=== PATIENT | male | born 1950 | race African-American/Black ===

== ENCOUNTER → 2017-09-19 | Outpatient (CLI) | payer OTHER ==
[~2017-09-19] MED LIST: ASPIR 8181 MG PO; CYCLOBENZAPRINE5 MG PO; FISH OIL 1,001000 M2 PO; HYDROCODONE-APA1 TA1 PO; LIPITOR10 MG PO; LISINOPRIL-HCT1 EACH PO; LISINOPRIL10 MG PO; NEURONTIN800 MG PO; NITROGLYCERIN0.4 MG; PROBIOTIC1 EAC2 PO; PROSCAR 5MG TABL5 MG PO; TOPROL XL25 MG PO; TOPROL XL50 MG PO; UNICOMPLEX M TA1 TA1 PO; ZANTAC 150MG T150 MG PO
== END ==
LOC: RAD 12:11
DX: M25.521 Pain in right elbow (principal)

== ENCOUNTER → 2018-03-06 | Outpatient (CLI) | payer OTHER | LOC: RAD 11:17 | DX: R05 Cough (principal); R06.02 Shortness of breath; I25.10 Atherosclerotic heart disease of native coronary artery without angina pectoris ==

== ENCOUNTER → 2018-03-24 | Outpatient (CLI) | payer OTHER | LOC: MRI 06:17 | DX: R41.82 Altered mental status, unspecified (principal) ==

== ENCOUNTER 2018-05-27 16:45 | Emergency (ER) | payer OTHER ==
[~2018-05-27] VITALS: Ht 175.3 cm; Wt 82.6 kg
--- NOTE | ~2018-05-27 | EKG ---
[place] [address] [facility] [place] [address] ELECTROCARDIOGRAM REPORT Name: ZOILA BLAIR [facility] Room #: DEP [id number] Admission: 05/27/18 Attend Phys: Discharge: 05/27/18 Date of : 48 Report #: [id number] THIS REPORT FOR: //name// [facility] ED Test Date: 2018-05-27 Test Time: 17:11:26 Pat Name: ZOILA BLAIR Department: Room: Gender: M Family Practitioner: ИВАН : 1950 Requested By: Toño Mensah Order Number: [id number] MD: Casey Richards Measurements Intervals [place] Rate: 63 P: 24 DE: 145 QRS: 68 QRSD: 102 T: -53 QT: 392 QTc: 402 Interpretive Statements Sinus rhythm Anterior infarct, old Nonspecific T abnormalities, inferior leads Compared to ECG 01/24/2017 14:47:05 First degree AV block no longer present Electronically Signed On 05-29-2018 7:29:54 CDT by Casey Richards [email or web address] <ELECTRONICALLY SIGNED> By: Casey Richards MD, [facility] 05/29/18 0729 10 10 Casey Richards MD, [facility] /EPI
[2018-05-27 17:03] LABS: ABSOLUTE NEUTROPHILS 3.5 thou/uL (1.4-8.2); BASOPHILS 0.5 % (0.0-2.0); EOSINOPHILS 1.2 % (0.0-3.0); HEMATOCRIT 37.7 % (42.0-52.0); HEMOGLOBIN 12.7 gm/dL (14.0-18.0); LYMPHOCYTES 39.1 % (24.0-44.0); MCH 30.5 pg (26.0-34.0); MCHC 33.7 g/dL (28.0-37.0); MCV 90.8 fL (80.0-100.0); MONOCYTES 7.4 % (1.0-8.0); PLATELET COUNT 175 thou/uL (150-400); POLYS 51.8 % (36.0-66.0); RBC 4.16 mil/uL (4.50-6.00); RDW 14.2 % (10.5-14.5); WBC 6.8 thou/uL (4.0-11.0)
[2018-05-27 17:15] LABS: PROTIME 10.6 Seconds (9.3-11.4)
[2018-05-27 17:23] LABS: ANION GAP 12 mmol/L (7-16); BUN 37 mg/dL (7-18); CALCIUM 9.7 mg/dL (8.5-10.1); CHLORIDE 104 mmol/L (98-107); CO2 26 mmol/L (21-32); GLUCOSE 124 mg/dL (74-106); POTASSIUM 4.3 mmol/L (3.5-5.1); SODIUM 142 mmol/L (136-145)
[2018-05-27 17:28] LABS: SGOT 16 U/L (15-37); SGPT 23 U/L (30-65); TOTAL BILIRUBIN 0.5 mg/dL (<0.1-1.0); TOTAL PROTEIN 7.8 g/dL (6.4-8.2); TROPONIN-I <0.06 ng/mL (<0.06)
== END 2018-05-27 19:50 | disposition short-term general hospital (02) ==
LOC: ER 16:45
PROVIDERS: Physician Assistant
DX: S09.90XA Unspecified injury of head, initial encounter (principal); R55 Syncope and collapse; M54.2 Cervicalgia; T14.8XXA Other injury of unspecified body region, initial encounter; K21.9 Gastro-esophageal reflux disease without esophagitis; I25.2 Old myocardial infarction; W19.XXXA Unspecified fall, initial encounter; Y93.89 Activity, other specified; Y92.89 Other specified places as the place of occurrence of the external cause; Y99.8 Other external cause status

== ENCOUNTER 2018-10-06 06:42 | Outpatient (CLI) | payer OTHER ==
[~2018-10-06] VITALS: Ht 175.3 cm; Wt 74.8 kg
--- NOTE | ~2018-10-06 | EKG ---
[address] [address] ELECTROCARDIOGRAM REPORT Name: ZOILA BLAIR III Room #: 209-P [facility].#: [id number] Admission: 10/06/18 Attend Phys: Alonzo Alexander MD Discharge: Date of : 48 Report #: [id number] THIS REPORT FOR: //name// [facility] Test Date: 2018-10-06 Test Time: 13:09:29 Pat Name: ZOILA BLAIR Department: Room: Gender: Hospice Plan Administrator: Feliz OSOIRO : 1950 Requested By: Alonzo Alexander Order Number: [id number] MD: Pacheco Potter Measurements Intervals [place] Rate: 59 P: 62 WI: 218 QRS: 54 QRSD: 97 T: -13 QT: 444 QTc: 440 Interpretive Statements Sinus rhythm Borderline T abnormalities, inferior leads Compared to ECG 10/06/2018 07:12:02 No significant changes Electronically Signed On 10-06-2018 16:41:27 HOT WORT SETTLER by Pacheco Potter [email or web address] <ELECTRONICALLY SIGNED> By: Pacheco Potter MD 10/06/18 1641 1309 130 Pacheco Potter MD /JOSEPH
--- NOTE | ~2018-10-06 | EKG ---
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 : 1950 Requested By: Alonzo Alexander Order Number: [id number] MD: Casey Richards Measurements Intervals [place] Rate: 75 P: -44 [place]: 157 QRS: 65 QRSD: 88 T: -51 QT: 306 QTc: 342 Interpretive Statements Sinus rhythm Nonspecific ST and T wave abnormality Baseline wander in lead(s) II,aVR,aVF,V3 Compared to ECG 10/06/2018 13:09:29 Nonspecific change in the ST and T-wave segments Electronically Signed On 10-07-2018 7:49:13 STRUCTURAL BIOLOGIST by Casey Richards [email or web address] <ELECTRONICALLY SIGNED> By: Casey Richards MD, [facility] 10/07/18 0749 Casey Richards MD, [facility] /EPI
--- NOTE | ~2018-10-06 | CATHLAB ---
[facility] [place] [address] INVASIVE PROCEDURE REPORT Name: ZOILA BLAIR III Room #: 209-P [facility]#: [id number] Admission: 10/06/18 Attend Phys: Alonzo Alexander MD Discharge: Date of : 48 Date of Service: 10/06/18 1627 Report #: [id number] THIS REPORT FOR: //name// APPROVED REPORT Study performed: 10/06/2018 07:10:28 Patient Details Patient Status: Out-Patient Room #: The patient is a 68 year-old male Event Personnel Alonzo Alexander Software Engineer Web Services, Garry Bal RN RN, Tanisha Alfred Sandifer, David Monitor Procedures Performed Left Heart Cath w/or w/o Coronaries [id number] [facility] [address] Place w/wo Plasty Single RCA [id number] Indication Dyspnea, Positive stress test, Chest pain Risk Factors Hypercholesterolemia, Coronary Artery DiseaseHypertension Previous Procedures/Diagnoses Previous PCI, Previous [place] Procedure Narrative The Right Groin^ was infiltrated with 1% Lidocaine subcutaneous anesthesia. A Alonso 7 Embee Mobilerad Syringe #[id number] sheath was inserted into the RFA^. Coronary angiography was performed using coronary diagnostic catheters. The right coronary system was accessed and visualized with a JR4 catheter. The left coronary system was accessed and visualized with a JL4 catheter. The left ventricle was accessed and visualized with a PIGTAIL catheter. Left ventricular/Aortic Valve gradient assessed via catheter pullback. Closure device was deployed with a 6 Fr MYNXGRIP 6/7F #[id number]. The patient tolerated the procedure well and there were no complications associated with the procedure. There was no hematoma. Intraoperative Conscious Sedation Sedation start time: 8.44 Case end Time: 10.31 Versed 2 mg [facility] [address] [place] [address] INVASIVE PROCEDURE [facility]PORT [facility] Room #: 209-P [facility]#: [id number] Admission: 10/06/18 Attend Phys: Alonzo Alexander MD Discharge: Date of : 48 Date of Service: 10/06/18 1627 Report #: [id number] Fluoro Time: 27.51 minutes Dose: DAP 81253 cGycm2 2772 mGy Contrast Type and Amount: Visipaque 200 ml Coronary Angiography The patient's coronary anatomy is right dominant. Diagnostic Cath Left Main Patent vessel, with no flow-limiting lesions. LAD Moderate size caliber vessel, traveling down the anterior wall and wrapping around the apex. There is mild disease in the proximal segment, 20%. Diagonal 1 Patent vessel, with no flow-limiting lesions. Circumflex Patent vessel, with mild disease proximally. OM1 Patent vessel, with mild disease proximally. Travels down the lateral wall, supplying several small branches. Right Coronary Dominant vessel with a stent in the proximal segment, severely restenotic. There is a total occlusion in the mid/distal segment of the RCA, before the bifurcation. The PDA is partially filled via collateral circulation from the LAD. Left Ventriculography Left Ventriculography was not performed. An LVEDP was checked and there is no gradient across the outflow tract. Hemodynamics The aortic pressure is 133/55 mmHg with a mean of 54 mmHg. The left ventricular pressure is 140/12 mmHg with a mean of mmHg. The left ventricular end diastolic pressure is 18 mmHg. There was no gradient across the aortic valve upon pullback. Pullback from the left ventricle to the aorta revealed no gradient across the aortic valve. PCI Technique Lesion Anticoagulation was achieved with Angiomax. Percutaneous coronary intervention was performed on the mid/distal right coronary artery. The lesion stenosis prior to intervention was 100% with ISAURA 1 flow. A VISTA 6FR JR 4 #[id number] Guide Catheter was used to engage the ostium. A Whisper Wire .014 x 190 #[id number] Interventional Guidewire was used to cross the lesion. BALLOON DILATION A Balloon catheter Sprinter OTW 2.0 x 12 #[id number] was inserted and inflated up to 10.00atm for 25seconds. Additional Inflation: 8.00atm [facility] [address] [place] [address] INVASIVE PROCEDURE REPORT Name: ZOILA BLAIR [facility] Room #: 209-P [facility]#: [id number] Admission: 10/06/18 Attend Phys: Alonzo Alexander MD Discharge: Date of : 48 Date of Service: 10/06/18 1627 Report #: [id number] for 12seconds. Additional Inflation: 12.00atm for 21seconds. STENT DEPLOYMENT A drug-eluting stent RESOLUTE MARIA E RX 2.25 X 15 #[id number] was inserted and inflated up to 12.00atm for 14seconds. Final angiography reveals 0 % stenosis with ISAURA 3 flow. PCI Technique Lesion 2 Percutaneous Coronary Intervention was performed on the proximal right coronary artery. Percutaneous coronary intervention was performed on the proximal RCA. The lesion stenosis prior to intervention was 90% with ISAURA 3 flow. A VISTA 6FR JR 4 #[id number] Guide Catheter was used to engage the ostium. Balloon Dilation A Balloon catheter Sprinter OTW 2.0 x 12 #[id number] was inserted and inflated up to 12.00atm for 18seconds. 3.0-10 CUTTING BALLOON 9 FOR 60 / 8 FOR 48, was used for the severe restenotic lesion within the proximal segment of the RCA. Stent Deployment A drug-eluting stent RESOLUTE MARIA E RX 3.0 X 26 #[id number] was inserted and inflated up to 16.00atm for 25seconds. Post Stent Deployment Balloon Dilation A Balloon catheter TREK NC RX 3.0 X 12 #[id number] was inserted and inflated up to 22.00atm for 24seconds. Final angiography reveals 5 % stenosis with ISAURA 3 flow. PCI Technique Lesion 3 Percutaneous Coronary Intervention was performed on the right posterior descending artery. The lesion stenosis prior to intervention was 90% with ISAURA 3 flow. Stent Deployment A drug-eluting stent XIENCE ALPINE RX 2.25 X 15 #[id number] was inserted and inflated up to 8.00atm for 15seconds. Additional Inflation: 12.00atm for 10seconds. The stent was initially deployed at 8 praful. The balloon was withdrawn slightly and additionally inflated up to 12atm. Final angiography reveals 0 % stenosis with ISAURA 3 flow. [facility] [address] [place] [address] INVASIVE PROCEDURE REPORT Name: ZOILA BLAIR III Room #: 209-P [facility] Bianka.#: [id number] Admission: 10/06/18 Attend Phys: Alonzo Alexander MD Discharge: Date of : 48 Date of Service: 10/06/18 162 Report #: [id number] Conclusion 1. Successful insertion of a drug-eluting stent into the total occlusion in the mid/distal segment of the RCA. 2. Successful PCI with the use of a cutting balloon and placement of a drug-eluting stent into the severe, restenotic lesion in the proximal RCA. 3. Successful insertion of a drug-eluting stent into the ostium of the right PDA. 4. Mild disease in the LAD and OM1. 5. Recommend dual antiplatelet therapy and aggressive risk factor management. <ELECTRONICALLY SIGNED> By: Alonzo Alexander MD 10/06/181626 26 26 Alonzo Alexander MD /INF
--- NOTE | ~2018-10-06 | EKG ---
[place] [address] [facility] [place] [address] ELECTROCARDIOGRAM REPORT Name: ZOILA BLAIR III [id number] Admission: 10/06/18 Attend Phys: Alonzo Alexander MD Discharge: Date of : 48 Report #: [id number] THIS REPORT FOR: //name// [facility] Test Date: 2018-10-06 Test Time: 07:12:02 Pat Name: ZOILA BLAIR Department: Room: Gender: M Tub Operator: : 1950 Requested By: Alonzo Alexander Order Number: [id number] MD: Casey Richards Measurements Intervals [place] Rate: 69 P: 14 MD: 157 QRS: 49 QRSD: 97 T: -22 QT: 377 QTc: 404 Interpretive Statements Sinus rhythm Borderline T abnormalities Poor septal R-wave progression Compared to ECG 05/27/2018 17:11:26 No significant change was found Electronically Signed On 10-06-2018 8:12:57 SECTION LEADER AND MACHINE SETTER by Casey Richards [email or web address] <ELECTRONICALLY SIGNED> By: Casey Richards MD, [facility] 10/06/18811 1 1 Casey Richards MD, FACC /EPI
--- NOTE | ~2018-10-06 | D ---
[facility] [place] [place] [address] DISCHARGE SUMMARY Name: ZOILA BLAIR III Room #: DEP JOYCE [facility]#: [id number] Admission: 10/06/18 Attend Phys: Alonzo Alexander MD Discharge: 10/07/18 Date of : 48 Report #: [id number] THIS REPORT FOR: //name// CC: THEODOREShakir Harrisa [facility] DATE OF SERVICE: 10/07/2018 FINAL DIAGNOSES: 1. Unstable angina, status post coronary angioplasty. 2. Coronary artery disease with remote history of myocardial infarction. 3. Hypertension. 4. Transient ischemic attack. 5. Hypercholesterolemia. 6. Edema. 7. Gait instability. HOSPITAL COURSE: The patient presented with increasing dyspnea and chest discomfort with exertion. He also felt generalized fatigue. Please see the cardiac catheterization report for full details. The LAD and left circumflex arteries had mild disease. The stent in the RCA was severely restenotic. After the stent, there was a total occlusion in the mid/distal segment of the RCA. The PDA is partially collateralized from the left coronary artery. Angioplasty was performed with placement of 3 drug-eluting stents. He has remained hemodynamically stable overnight. He offers no complaints of angina or dyspnea. FINAL DISPOSITION: Aspirin 81 mg daily, Plavix 75 mg daily, lisinopril, atorvastatin, metoprolol 25 mg, ranitidine. He is given instructions for followup in the office. <ELECTRONICALLY SIGNED> By: Alonzo Alexander MD 10/08/18 0824 0843 1313 Alonzo Alexander MD /tati
[2018-10-06 07:17] VITALS: BP 148/69
[2018-10-06 07:29] LABS: HEMATOCRIT 39.9 % (42.0-52.0); HEMOGLOBIN 13.4 gm/dL (14.0-18.0); MCH 29.2 pg (26.0-34.0); MCHC 33.7 g/dL (28.0-37.0); MCV 86.9 fL (80.0-100.0); RBC 4.59 mil/uL (4.50-6.00); RDW 15.4 % (10.5-14.5); WBC 6.8 thou/uL (4.0-11.0)
[2018-10-06 07:37] LABS: CALCIUM 9.7 mg/dL (8.5-10.1); CREATININE 1.6 mg/dL (0.7-1.3); POTASSIUM 3.7 mmol/L (3.5-5.1)
[2018-10-06] MEDS ORDERED: RANEXA500 MG PO (07:38)
[2018-10-06 12:24] VITALS: BP 148/70
[2018-10-06 20:17] VITALS: BP 150/76
[2018-10-06 23:55] VITALS: BP 133/71
[2018-10-07 04:43] LABS: HEMATOCRIT 36.7 % (42.0-52.0); HEMOGLOBIN 12.5 gm/dL (14.0-18.0); MCH 29.3 pg (26.0-34.0); MCHC 33.9 g/dL (28.0-37.0); MCV 86.4 fL (80.0-100.0); RBC 4.25 mil/uL (4.50-6.00); RDW 15.5 % (10.5-14.5); WBC 6.4 thou/uL (4.0-11.0)
[2018-10-07 04:51] VITALS: BP 132/89
[2018-10-07 04:55] LABS: ALBUMIN 3.1 g/dL (3.4-5.0); CALCIUM 8.9 mg/dL (8.5-10.1); CREATININE 1.3 mg/dL (0.7-1.3); TOTAL BILIRUBIN 0.3 mg/dL (<0.1-1.0); TOTAL PROTEIN 6.6 g/dL (6.4-8.2)
[2018-10-07 04:57] LABS: TROPONIN-I 1.52 ng/mL (<0.06)
[2018-10-07] MEDS ORDERED: CLOPIDOGREL75 MG PO (08:33)
[2018-10-07 10:35] VITALS: BP 132/89
== END 2018-10-07 11:30 | disposition home or self-care (01) ==
LOC: CATH 06:42 → 2N 12:38 → ENTRNSPT 10-07 11:09 → EDTRNSPTSTS 10-07 11:10 → CATH 10-07 11:30
PROVIDERS: Internal Medicine Cardiovascular Disease
DX: I25.10 Atherosclerotic heart disease of native coronary artery without angina pectoris (principal); I10 Essential (primary) hypertension; E78.00 Pure hypercholesterolemia, unspecified; I25.2 Old myocardial infarction; K21.9 Gastro-esophageal reflux disease without esophagitis; Z95.5 Presence of coronary angioplasty implant and graft; Z86.73 Personal history of transient ischemic attack (TIA), and cerebral infarction without residual deficits; Z98.890 Other specified postprocedural states; Z79.899 Other long term (current) drug therapy; Z87.19 Personal history of other diseases of the digestive system
CPT/HCPCS: 10081

== ENCOUNTER → 2019-05-07 | Outpatient (CLI) | payer OTHER ==
[~2019-05-07] MED LIST changes: +CLOPIDOGREL75 MG PO; +RANEXA500 MG PO
== END ==
LOC: MRI 04-28 10:54
DX: I63.9 Cerebral infarction, unspecified (principal); G31.9 Degenerative disease of nervous system, unspecified; R90.82 White matter disease, unspecified; R41.3 Other amnesia; R42 Dizziness and giddiness

== ENCOUNTER → 2019-08-10 | Outpatient (CLI) | payer OTHER ==
--- NOTE | 2019-08-10 12:59 | 2DMMODE ---
[facility] [place] [address] 2 D/M-MODE ECHOCARDIOGRAM Name: ZOILA BLAIR III Room #: REG [facility] [id number] ������������� Admission: 08/10/19 ������������� Attend Phys: Alonzo Alexander MD Discharge: ��� ������������� ��� Date of : 48 Date of Service: 08/10/19 1258 �� Report #: [id number] �������� ��������������������������������������������[id number] THIS REPORT FOR: //name// APPROVED REPORT Study performed: 08/10/2019 11:26:09 EXAM: Comprehensive 2D, Doppler, and color-flow Echocardiogram Patient Location: Echo lab Status: routine BSA: 1.96 HR: 58 bpm BP: 138/72 mmHg Rhythm: NSR Other Information Study Quality: Adequate Indications CAD Hypertension/HDD 2D Dimensions RVDd: 30.76 mm IVSd: 9.45 (7-11mm) LVOT Diam: 20.09 (18-24mm) LVDd: 38.87 mm PWd: 9.82 (7-11mm) Ascending Ao: 28.19 (22-36mm) LVDs: 27.94 (25-40mm) Aortic Root: 30.95 mm IVC: 17.00 mm Volumes Left Atrial Volume (Systole) Single Plane 4CH: 26.01 mL Single Plane 2CH: 36.26 mL LA ESV Index: 19.00 mL/m2 Aortic Valve AoV Peak Max.: 0.98 m/s AO Peak Gr.: 3.84 mmHg LVOT Max P.24 mmHg LVOT Max V: 0.75 m/s PEDRITO Vmax: 2.42 cm2 Mitral Valve E/A Ratio: 0.8 MV Decel. Time: 254.12 ms [facility] [address] [address] 2 D/M-MODE ECHOCARDIOGRAM Name: ZOILA BLAIR III Room #: [facility]#: [id number] ������������� Admission: 08/10/19 ������������� Attend Phys: Alonzo Alexander MD Discharge: ��� ������������� ��� Date of : 48 Date of Service: 08/10/19 1258 �� Report #: [id number] �������� ��������������������������������������������[id number] MV E Max Max.: 0.70 m/s MV A Max.: 0.86 m/s MV PHT: 73.69 ms IVRT: 143.02 ms Pulmonary Valve PV Peak Max.: 0.83 m/s PV Peak Gr.: 2.74 mmHg Pulmonary Vein P Vein S: 0.51 m/s P Vein A: 0.28 m/s P Vein D: 0.49 m/s P Vein A Dur.: 166.1 msec P Vein S/D Ratio: 1.04 Tricuspid Valve TR Peak Max.: 2.48 m/s RAP Estimate: 5.00 mmHg TR Peak Gr.: 24.52 mmHg PA Pressure: 30.00 mmHg Left Ventricle The left ventricle is normal size. Hypokinesis of mid and basal inferior ramsey. There is normal left ventricular wall thickness. The left ventricular systolic function is normal. The left ventricular ejection fraction is within the normal range. LVEF is 55-60%. Mild diastolic dysfunction is present (impaired relaxation pattern). Right Ventricle The right ventricle is normal size. The right ventricular systolic function is normal. Atria The left atrium size is normal. The right atrium size is normal. Aortic Valve The aortic valve is normal in structure. Trace aortic regurgitation. There is no aortic valvular stenosis. Mitral Valve The mitral valve is normal in structure. Mild to moderate mitral regurgitation. No evidence of mitral valve stenosis. Tricuspid Valve The tricuspid valve is normal in structure. Mild tricuspid regurgitation. PAP is estimated at 30 mmHg. [facility] [address] [place] [address] 2 D/M-MODE ECHOCARDIOGRAM Name: MANHATTAN BEACHZOILA SOHA [facility] Room #: REG [facility] [id number] ������������� Admission: 08/10/19 ������������� Attend Phys: Alonzo Alexander MD Discharge: ��� ������������� ��� Date of : 48 Date of Service: 08/10/19 1258 �� Report #: [id number] �������� ��������������������������������������������[id number] Pulmonic Valve The pulmonary valve is normal in structure. There is no pulmonic valvular regurgitation. Great Vessels The aortic root is normal in size. IVC is normal in size and collapses >50% with inspiration. Pericardium There is no pericardial effusion. <Conclusion> The left ventricle is normal size. There is normal left ventricular wall thickness. The left ventricular systolic function is normal. Hypokinesis of mid and basal inferior ramsey. Mild diastolic dysfunction is present (impaired relaxation pattern). The right ventricle is normal size. The left atrium size is normal. Trace aortic regurgitation. Mild to moderate mitral regurgitation. Mild tricuspid regurgitation. PAP is estimated at 30 mmHg. ��������������������������������������������� <ELECTRONICALLY SIGNED> ���������������������������������������� By: Alonzo Alexander MD ��������������������������������������������� 08/10/19 1258 1258 1258 Alonzo Alexander MD /INF
== END ==
LOC: CV 11:07
DX: I08.1 Rheumatic disorders of both mitral and tricuspid valves (principal); I25.10 Atherosclerotic heart disease of native coronary artery without angina pectoris; I10 Essential (primary) hypertension

== ENCOUNTER 2019-11-28 10:54 | Emergency (ER) | payer OTHER ==
[~2019-11-28] VITALS: Ht 175.3 cm; Wt 79.4 kg
[2019-11-28 11:41] LABS: ABSOLUTE NEUTROPHILS 5.7 thou/uL (1.4-8.2); BASOPHILS 0.7 % (0.0-2.0); EOSINOPHILS 0.7 % (0.0-3.0); HEMOGLOBIN 13.7 gm/dL (14.0-18.0); LYMPHOCYTES 18.9 % (24.0-44.0); MCH 30.7 pg (26.0-34.0); MCHC 33.4 g/dL (28.0-37.0); MCV 91.8 fL (80.0-100.0); MONOCYTES 8.8 % (1.0-8.0); PLATELET COUNT 165 thou/uL (150-400); POLYS 70.9 % (36.0-66.0); RBC 4.46 mil/uL (4.50-6.00); RDW 13.3 % (10.5-14.5)
[2019-11-28 11:46] LABS: CALCIUM 9.8 mg/dL (8.5-10.1); CREATININE 1.8 mg/dL (0.7-1.3); POTASSIUM 4.2 mmol/L (3.5-5.1)
[2019-11-28 11:52] LABS: ALBUMIN 3.5 g/dL (3.4-5.0); TOTAL BILIRUBIN 0.7 mg/dL (<0.1-1.0); URIC ACID* 9.2 mg/dL (2.6-7.2)
[2019-11-28] MEDS ORDERED: NORCO 5-325 TA1 EAC1 PO (13:16)
[2019-11-28] MEDS ORDERED: MITIGARE0.6 MG PO (13:16)
[2019-11-28] MEDS ORDERED: PREDNISONE 20 M20 MG PO (13:16)
[2019-11-28 14:01] VITALS: BP 145/76
== END 2019-11-28 14:01 | disposition home or self-care (01) ==
LOC: ER 10:54
PROVIDERS: Physician Assistant
DX: M10.031 Idiopathic gout, right wrist (principal); K21.9 Gastro-esophageal reflux disease without esophagitis; Z86.73 Personal history of transient ischemic attack (TIA), and cerebral infarction without residual deficits; Z95.5 Presence of coronary angioplasty implant and graft; Z87.891 Personal history of nicotine dependence

== ENCOUNTER → 2020-01-14 | Outpatient (CLI) | payer OTHER ==
[~2020-01-14] MED LIST changes: +MITIGARE0.6 MG PO; +NORCO 5-325 TA1 EAC1 PO; +PREDNISONE 20 M20 MG PO
== END ==
LOC: SJCVCIMAG 10:34
DX: I25.118 Atherosclerotic heart disease of native coronary artery with other forms of angina pectoris (principal); I42.9 Cardiomyopathy, unspecified; E78.00 Pure hypercholesterolemia, unspecified; I10 Essential (primary) hypertension; G47.33 Obstructive sleep apnea (adult) (pediatric); Z79.82 Long term (current) use of aspirin; Z79.899 Other long term (current) drug therapy; Z82.49 Family history of ischemic heart disease and other diseases of the circulatory system; Z87.891 Personal history of nicotine dependence

== ENCOUNTER 2021-08-23 01:32 | Inpatient (IN) | payer OTHER ==
[~2021-08-23] VITALS: Ht 177.8 cm; Wt 82.2 kg
--- NOTE | ~2021-08-23 | EMS ---
[place] [address] EMS Patient Care Report Name: ZOILA BLAIR III Room #: 202-P [facility] IN M.R.#: [id number] Admission: 08/23/21 Attend Phys: Asaf Brennan MD Discharge: 08/25/21 Date of : 48 Report #: [id number] THIS REPORT FOR: //name// Report Transmitted: 08/31/2021 16:17 EMS Care Summary [place], [place]/[facility] Incident [id number] @ 08/23/2021 00:52 Incident [address] [place] [address] Patient ZOILA BLAIR, III Male, 71 Years 1950 Patient Address [address] [place] [address] Patient History Hypertension (HTN),Stroke/CVA,Hyperlipidemia,Cardiac - Stent, Patient Allergies No known allergies, Patient Medications Meloxicam, Duloxetine, Metoprolol, Atorvastatin, Hydrochlorothiazide (Hctz), Gabapentin, Hydrocodone, Chief Complaint Pt has word salad Disposition Transported No Lights/[place] Dispatch Reason Stroke/CVA Transported To [facility] Narrative Called for a possible CVA. Upon arrival, pt was awake sitting in a chair. His stated he just started not making any sense with his words. This was abnormal for him. He has had a CVA in the past. He was moved to the EMS cot [place] [id number] EMS Patient Care Report Name: ZOILA BLAIR III Room #: 202-[facility] IN ..#: [id number] Admission: 08/23/21 Attend Phys: Asaf Brennan MD Discharge: 08/25/21 Date of : 48 Report #: [id number] and loaded into the ambulance w/o incident. Vitals obtained. Attempt IV w/o success. D-stick. Vitals repeated. 4 Lead. En route: no significant changes. RR to the ER of possible CVA. Arrived: pt taken to CT and moved to their bed w/o incident. Pt care & report to ER staff. Initial Vitals @01:16Glucose: 101, @01:17P: 63,BP: 199/101, @01:30P: 64, @01:10P: 60,R: 16,BP: 240/105,Pain: 0/10,GCS: 11,CO: 2,SpO2: 97,Revised Trauma: 11, @01:14P: 65,R: 16,BP: 200/80,Pain: 0/10,GCS: 11,CO: 0,SpO2: 99,Revised Trauma: 11, Assessments @01:00MENTAL:Person Oriented,Confused,SKIN:HEENT:LUNG SOUNDS:ABDOMEN:PELVIS//GI:EXTREMITIES:Left Arm: No Abnormalities,Right Arm: No Abnormalities,Left Leg: No Abnormalities,Right Leg: No Abnormalities,PULSE:Radial: 2+ Normal,NEURO:Slurred Speech, Impression Altered Mental Status Procedures @01:08StretcherResponse: Unchanged@01:06StairchairResponse: Unchanged@01:22Stroke AlertResponse: Unchanged@01:143-Lead ECGResponse: UnchangedSucceeded@01:00ALS AssessmentResponse: UnchangedSucceeded@01:12Saline Lock cc (18 ga) Site: Antecubital-LeftResponse: UnchangedFailed Timeline 00:50,Call Received 00:50,Dispatch Notified 00:52,Dispatched 00:55,En Route 00:59,On Scene 01:00,At Patient 01:00,ALS Assessment,Response: UnchangedSucceeded, 01:06,Stairchair,Response: Unchanged 01:08,Stretcher,Response: Unchanged 01:10,BP: 240/105 M,PULSE: 60,RR: 16 R,SPO2: 97 Ox,ETCO2: ,BG: ,PAIN: 0,GCS: 11, 01:12,Saline Lock cc 18 ga Site: Antecubital-Left,Response: UnchangedFailed, 01:14,3-Lead ECG,Response: UnchangedSucceeded, 01:14,BP: 200/80 M,PULSE: 65,RR: 16 R,SPO2: 99 Ox,ETCO2: ,BG: ,PAIN: 0,GCS: 11, 01:16,BP: / M,PULSE: ,RR: R,SPO2: Ox,ETCO2: ,B,PAIN: ,GCS: , 01:17,BP: 199/101 M,PULSE: 63,RR: R,SPO2: Ox,ETCO2: ,BG: ,PAIN: ,GCS: , [facility] [address] [place] [address] EMS Patient Care Report Name: ZOILA BLAIR [facility] Room #: 202-P [facility] IN M.R.#: [id number] Admission: 08/23/21 Attend Phys: Asaf Brennan MD Discharge: 08/25/21 Date of : 48 Report #: [id number] 01:18,Depart Scene 01:22,Stroke Alert,Response: Unchanged 01:30,BP: / M,PULSE: 64,RR: R,SPO2: Ox,ETCO2: ,BG: ,PAIN: ,GCS: , 01:30,At Destination 01:46,Call Closed Disclaimer v1.1 Copyright 2020 [employer] This EMS Care Summary contains data elements from the applicable legal record (which may be displayed differently). It is designed to provide pertinent information for the following purposes: continuity of care, clinical quality, and state data reporting. The complete legal record is available to ED staff and administrators of the receiving hospital in [facility]'s Patient Tracker. All data is provided "as is."
--- NOTE | ~2021-08-23 | EMS ---
[place] [address] EMS Patient Care Report Name: ZOILA BLAIR III Room #: 202-P [facility] IN M.R.#: [id number] Admission: 08/23/21 Attend Phys: Asaf Brennan MD Discharge: 08/25/21 Date of : 48 Report #: [id number] THIS REPORT FOR: //name// Report Transmitted: 08/29/2021 15:42 EMS Care Summary [place], [place]/[facility] Incident [id number] @ 08/23/2021 00:52 Incident Location [address] [place] [address] Patient ZOILA BLAIR, III Male, 71 Years 1950 Patient Address [address] [place] [address] Patient History Hypertension (HTN),Stroke/CVA,Hyperlipidemia,Cardiac - Stent, Patient Allergies No known allergies, Patient Medications Meloxicam, Duloxetine, Metoprolol, Atorvastatin, Hydrochlorothiazide (Hctz), Gabapentin, Hydrocodone, Chief Complaint Pt has word salad Disposition Transported No Lights/[place] Dispatch Reason Stroke/CVA Transported To [facility] Narrative Called for a possible CVA. Upon arrival, pt was awake sitting in a chair. His stated he just started not making any sense with his words. This was abnormal for him. He has had a CVA in the past. He was moved to the EMS cot [place] [id number] EMS Patient Care Report Name: ZOILA BLAIR III Room #: 202-[facility] IN ..#: [id number] Admission: 08/23/21 Attend Phys: Asaf Brennan MD Discharge: 08/25/21 Date of : 48 Report #: [id number] and loaded into the ambulance w/o incident. Vitals obtained. Attempt IV w/o success. D-stick. Vitals repeated. 4 Lead. En route: no significant changes. RR to the ER of possible CVA. Arrived: pt taken to CT and moved to their bed w/o incident. Pt care & report to ER staff. Initial Vitals @01:16Glucose: 101, @01:17P: 63,BP: 199/101, @01:30P: 64, @01:10P: 60,R: 16,BP: 240/105,Pain: 0/10,GCS: 11,CO: 2,SpO2: 97,Revised Trauma: 11, @01:14P: 65,R: 16,BP: 200/80,Pain: 0/10,GCS: 11,CO: 0,SpO2: 99,Revised Trauma: 11, Assessments @01:00MENTAL:Person Oriented,Confused,SKIN:HEENT:LUNG SOUNDS:ABDOMEN:PELVIS//GI:EXTREMITIES:Left Arm: No Abnormalities,Right Arm: No Abnormalities,Left Leg: No Abnormalities,Right Leg: No Abnormalities,PULSE:Radial: 2+ Normal,NEURO:Slurred Speech, Impression Altered Mental Status Procedures @01:08StretcherResponse: Unchanged@01:06StairchairResponse: Unchanged@01:22Stroke AlertResponse: Unchanged@01:143-Lead ECGResponse: UnchangedSucceeded@01:00ALS AssessmentResponse: UnchangedSucceeded@01:12Saline Lock cc (18 ga) Site: Antecubital-LeftResponse: UnchangedFailed Timeline 00:50,Call Received 00:50,Dispatch Notified 00:52,Dispatched 00:55,En Route 00:59,On Scene 01:00,At Patient 01:00,ALS Assessment,Response: UnchangedSucceeded, 01:06,Stairchair,Response: Unchanged 01:08,Stretcher,Response: Unchanged 01:10,BP: 240/105 M,PULSE: 60,RR: 16 R,SPO2: 97 Ox,ETCO2: ,BG: ,PAIN: 0,GCS: 11, 01:12,Saline Lock cc 18 ga Site: Antecubital-Left,Response: UnchangedFailed, 01:14,3-Lead ECG,Response: UnchangedSucceeded, 01:14,BP: 200/80 M,PULSE: 65,RR: 16 R,SPO2: 99 Ox,ETCO2: ,BG: ,PAIN: 0,GCS: 11, 01:16,BP: / M,PULSE: ,RR: R,SPO2: Ox,ETCO2: ,B,PAIN: ,GCS: , 01:17,BP: 199/101 M,PULSE: 63,RR: R,SPO2: Ox,ETCO2: ,BG: ,PAIN: ,GCS: , [facility] [address] [place] [address] EMS Patient Care Report Name: ZOILA BLAIR [facility] Room #: 202-P [facility] IN M.R.#: [id number] Admission: 08/23/21 Attend Phys: Asaf Brennan MD Discharge: 08/25/21 Date of : 48 Report #: [id number] 01:18,Depart Scene 01:22,Stroke Alert,Response: Unchanged 01:30,BP: / M,PULSE: 64,RR: R,SPO2: Ox,ETCO2: ,BG: ,PAIN: ,GCS: , 01:30,At Destination 01:46,Call Closed Disclaimer v1.1 Copyright 2020 [employer] This EMS Care Summary contains data elements from the applicable legal record (which may be displayed differently). It is designed to provide pertinent information for the following purposes: continuity of care, clinical quality, and state data reporting. The complete legal record is available to ED staff and administrators of the receiving hospital in [facility]'s Patient Tracker. All data is provided "as is."
--- NOTE | ~2021-08-23 | HC ---
[facility] [place] [address] CONSULTATION Name: ZOILA BLAIR III Room #: 170-6 ADM IN M.R.#: [id number] Admission: 08/23/21 Attend Phys: Keith Lopez MD Discharge: Date of : 48 Report #: [id number] THIS REPORT FOR: cc: Amada Walsh MD, C. Douglas MD Khosla,Vic Patel MD ~ HISTORY OF PRESENT ILLNESS: This is a 71-year-old male patient who was evaluated by me for altered mental status this morning. The patient's consult has not been called to me yet, but it showed up under my list this morning, so I went ahead and saw the patient. I reviewed the records and talked to the patient's . History is not clear. Apparently, he had some episode of aphasia yesterday, but then last night, he had become pretty aphasic. He was brought to emergency room and those records were reviewed. REVIEW OF SYSTEMS: Positive for hypertension; hyperlipidemia; coronary artery disease; CVA, which says happened during a stent placement. Review of records indicate that this was here and in fact in 2017 and that time, it also indicated that he could not talk. does not provide any history. In fact, she does not even know when the stroke occurred. This is reviewing the records. In fact, I have seen him that time. He was also seen by Dr. Bradford at that time and review of the records indicates that MRI did not show any stroke that time and the symptoms appeared to be similar what he had today. I talked to the and she says there is no contraindication for MRI in this patient. is also a poor historian. A 14-point review of systems was carried out and this patient has numerous medical issues, which has been summarized in other people's note. He does have some congestion. He has COVID vaccine. At one time, he had acute kidney injuries. Other time, he had hypertensive encephalopathy. There is some question of spinal cord injury. does not provide much history, but he had multiple MRIs of the spine also. PAST MEDICAL HISTORY: Positive for suggestion of stroke, but his MRI was negative that time. FAMILY HISTORY: Negative for early-age stroke. SOCIAL HISTORY: There is some concern the has that the patient may be using drugs. PHYSICAL EXAMINATION: His examinations indicates he does not have much expression, but he is able to follow commands most of the time. He does not say even a single word, but he moves both sides symmetrically. He does not cooperate with the sensory examination or cerebellar or fundus examination. Cardiac examinations appear noncontributory. No respiratory difficulty was noticed. His blood pressure is 162/76, respirations 17, pulse is 66. [facility] [address] [place] [address] CONSULTATION Name: ZOILA BLAIR [facility] Room #: 170-6 ADM IN M.R.#: [id number] Admission: 08/23/21 Attend Phys: Keith Lopez MD Discharge: Date of : 48 Report #: [id number] LABORATORY DATA: His platelet count is only 122. IMPRESSION AND PLAN: Pretty difficult to form in this patient because he had similar symptom in 2017 and is very poor historian. However, I have reviewed all those records and I think it is desirable to do an MRI to see if he had a stroke and how his vasculature looks. I have ordered that stat. said there is no contraindication. I will look at it once it is available and give the further recommendation at that time. Thank you very much for this referral. By: [id number] Vic Owusu MD /nt
--- NOTE | ~2021-08-23 | EEG ---
[facility] [place] [address] ELECTROENCEPHALOGRAM Name: ZOILA BLAIR III Room #: 170-6 ADM IN M.R.#: [id number] Admission: 08/23/21 Attend Phys: Keith Lopez MD Discharge: Date of : 48 Report #: [id number] THIS REPORT FOR: //name// DATE OF SERVICE: 08/23/2021 This patient is being evaluated for altered mental status. An EEG was done by placing the electrode by standard 10-20 system of electrode placement. Both referential and sequential montages were used for recording. Background activity in this patient's EEG is about 7 Hz and 10 microvolts. The patient went to sleep that is associated with bilateral slowing and vertex sharp waves. Throughout the record, no active epileptiform activity was noticed. IMPRESSION: This is an abnormal EEG because it is slow and poorly formed. There is a nonspecific abnormality which can occur with dementia, encephalopathy, effect of psychotropic medication, etc. Clinical correlation is recommended. By: [id number] Vic Owusu MD /nt
[2021-08-23] MEDS ORDERED: MELOXICAM15 MG PO (01:39)
[2021-08-23] MEDS ORDERED: DULOXETINE HCL60 MG PO (01:39)
[2021-08-23] MEDS ORDERED: TOPROL XL25 MG PO (01:41)
[2021-08-23] MEDS ORDERED: HYDROCHLOROTHIA25 M1 PO (01:42)
[2021-08-23] MEDS ORDERED: FLONASE 0.05%50 MCG NASAL (01:43)
[2021-08-23] MEDS ORDERED: ZINC50 M1 PO (01:44)
[2021-08-23 02:11] LABS: ABSOLUTE NEUTROPHILS 6.1 thou/uL (1.4-8.2); BASOPHILS 0.7 % (0.0-2.0); EOSINOPHILS 1.3 % (0.0-3.0); HEMATOCRIT 41.6 % (42.0-52.0); HEMOGLOBIN 13.4 gm/dL (14.0-18.0); LYMPHOCYTES 26.5 % (24.0-44.0); MCH 29.8 pg (26.0-34.0); MCHC 32.3 g/dL (28.0-37.0); MCV 92.1 fL (80.0-100.0); MONOCYTES 5.5 % (1.0-8.0); PLATELET COUNT 122 thou/uL (150-400); RBC 4.51 mil/uL (4.50-6.00); RDW 14.4 % (10.5-14.5); WBC 9.2 thou/uL (4.0-11.0)
[2021-08-23 02:12] VITALS: BP 211/96
[2021-08-23 02:12] LABS: CALCIUM 9.1 mg/dL (8.5-10.1); CREATININE 1.2 mg/dL (0.7-1.3); POTASSIUM 4.8 mmol/L (3.5-5.1)
[2021-08-23 02:15] LABS: APTT 21.3 Seconds (24.5-32.8); INR 1.05; PROTIME 11.4 Seconds (10.5-12.1)
[2021-08-23 02:22] LABS: ALBUMIN 3.7 g/dL (3.4-5.0); TOTAL BILIRUBIN 0.6 mg/dL (0.2-1.0); TOTAL PROTEIN 6.8 g/dL (6.4-8.2)
[2021-08-23 03:50] LABS: URINE BILIRUBIN NEGATIVE (Negative); URINE BLOOD NEGATIVE (Negative); URINE CLARITY CLEAR; URINE COLOR YELLOW; URINE GLUCOSE-RANDOM* NEGATIVE (Negative); URINE KETONES NEGATIVE (Negative); URINE LEUKOCYTES-REFLEX NEGATIVE (Negative); URINE NITRITE-REFLEX NEGATIVE (Negative); URINE PROTEIN (DIPSTICK) NEGATIVE (Negative); URINE SPECIFIC GRAVITY 1.015 (1.005-1.035); URINE UROBILINOGEN 0.2 E.U./dl (0.2-1.0)
[2021-08-23 04:01] LABS: AMP/METHAMP Negative (Negative); BARBITURATES Negative (Negative); BENZODIAZEPINES Negative (Negative); COCAINE Negative (Negative); METHADONE Negative (Negative); OPIATES POSITIVE (Negative); PCP Negative (Negative)
--- NOTE | 2021-08-23 06:57 | EKG ---
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 : 1950 Requested By: Pravin Randall Order Number: [id number] MD: Cyril Pardo Measurements Intervals [place] Rate: 63 P: 76 OR: 216 QRS: 68 QRSD: 98 T: 25 QT: 416 QTc: 426 Interpretive Statements Sinus rhythm Borderline prolonged OR interval Probable left ventricular hypertrophy Compared to ECG 10/07/2018 07:06:42 ST (T wave) deviation no longer present Electronically Signed On 08-23-2021 6:56:48 CDT by Cyril Pardo [email or web address] <ELECTRONICALLY SIGNED> By: Cyril Pardo MD, [facility] 08/23/21 0656 020 020 Cyril Pardo MD, FACC /EPI
[2021-08-23 13:37] LABS: CHOLESTEROL 153 mg/dL (<200); HDL CHOLESTEROL 52 mg/dL (>40); LDL CHOLESTEROL 76 mg/dL (<100); TC:HDL 2.9 Ratio (Not establshd); TRIGLYCERIDE 129 mg/dL (<150); VLDL 26 mg/dL (<40)
[2021-08-23 17:55] VITALS: BP 165/75
[2021-08-23 21:00] VITALS: BP 191/88
[2021-08-24] VITALS (9 sets, daily range): BP systolic 128–195; BP diastolic 54–78
--- NOTE | 2021-08-24 01:48 | NUR ---
2044 ARRIVED PER CART FROM ER. PATIENT APHASIC AND UNABLE TO ANSWER QUESTIONS. ADMISSION PROCEDSS INITIATED AND COMPLETED. PATIENT TURNS SELF. ANSWERS QUESTIONS YES/NO. DENIES COMPLAINTS OF PAIN. 99 SLEEPING WITHOUT COMPLAINTS. CONTINUE TO ASSES.
[2021-08-24 04:56] LABS: HEMATOCRIT 36.9 % (42.0-52.0); HEMOGLOBIN 12.2 gm/dL (14.0-18.0); MCH 30.2 pg (26.0-34.0); MCV 91.6 fL (80.0-100.0); RBC 4.04 mil/uL (4.50-6.00); RDW 14.6 % (10.5-14.5); WBC 7.9 thou/uL (4.0-11.0)
[2021-08-24 05:13] LABS: CALCIUM 8.9 mg/dL (8.5-10.1); CREATININE 1.3 mg/dL (0.7-1.3)
--- NOTE | 2021-08-24 05:58 | NUR ---
RECEIVED REPORT FROM SHANDRA CARRILLO.ASSUMED CARE AT 0100 AM.PT ALERT AND ANSWERS QUESTIONS.EXPRESSIVE APHASIA NOTED.DENIES PAIN.CONDOM CATH IN PLACE.MONITOR SHOWS SR.POC CONTINUED.
[2021-08-24 07:09] LABS: GLYCOHEMOGLOBIN (HGB A1C) 6.3 % (4.8-5.6)
--- NOTE | 2021-08-24 11:42 | NUR ---
Patient's home medications were sent to pharmacy, two empty bottles were left in patient's bag. Wyatt 5-325 was one of the medications sent to pharmacy, 11 tablets in bottle. Bottle read quantity of 120 tabs were prescribed 06/2021. Dr. Brennan updated in person. I spoke with patient's and provided with an update. She reports he has been more forgetful, more so over the last month or two. She states that at times he doesn't remember if he had taken his medications or not. He self adinisters medications and has been resistent to using pill boxes for AM/PM/day of the week dosing as an aide. agreed that this would be beneficial as part of his AMS could be related to improper medication administeration. She stated this is something she will work on once he is able to return home.
--- NOTE | 2021-08-24 17:07 | NUR ---
Case opened to follow for dc planning. Pt still confused at times today. Hand Cloth Examiner spoke with pt's ex Elda with whom he lives to verify his prior level of function. She reports that he is indep with a cane and that he lives with her in a split level home with steps into the home and inside the home. He was driving until she took his keys away from him a week ago. She notes he has been increasingly confused and weak and she is concerned he has been mixing up his medications. They are but live together. Her adult son recently moved in to help her as she is using a rwalker and needing knee surgery. She notes he has a son in [place] and a bro/sister out of state but none seem to be able to really assist with his care needs. She is concerned that he may need place in the future is he can not care for himself. MRI neg for CVA. Pt still having aphasia and is being seen by PT/OT/ST and rehab medicine. The pt is declining any rehab and wanting to go directly home at dc. Elda to talk with the pt about maybe going to snf but if he is adament about returning home she is open to hh f/u if he will accept. DIRECTOR OF HOME ECONOMICS as well as RN/PT/OT/ST will need to be requested. The pt has had his two covid vaccines in March. He is covid neg this admission. Will follow and see how the pt does with therapy tomorrow and if his mental status improves to further discuss his dc needs and options.
--- NOTE | 2021-08-24 18:33 | NUR ---
PATIENT REMAINED OFF CARDENE GTT SINCE LAST EVENING. BP STABLE (SBP RANGE 130-140S) AT MORNING AND NOON. AT 1600 HIS BP WAS 195/72 AT REST. THIS RN NOTICED PATIENT'S HOME BP MEDICATIONS HAD NOT BEEN STARTED. DR. GILMORE NOTIFIED, NEW ORDERS PLACED. HCTZ AND METOPROLOL BOTH GIVEN PER ORDER. BP WAS RECHECKED ONE HOUR AFTER ADMINISTERING MEDICATIONS AND WAS 145/69. WILL CONTINUE TO MONITOR.
[2021-08-25 04:39] VITALS: BP 138/84
--- NOTE | 2021-08-25 06:03 | NUR ---
Assumed pt's care this pm shift. Alert and oriented to person, situation and time. Knows he's in the hospital but unable to voice name. Forgetful. Pleasantly confused. HS meds given per EMAR. No hydralazine coverage utilized this shift. Pt slept well this shift. Had a bm via bsc this shift. Some bladder incontinence. Fall precaution in place. Pt did not utilize call light this shift. Nursing to continue to monitor.
[2021-08-25 09:53] VITALS: BP 132/58
--- NOTE | 2021-08-25 12:01 | NUR ---
Pt dcing home today and agreeable to Hh. Denied preference. Neftaly arias here and visited with him. He is agreeable. Pt has cleared him for home and did steps this am. ENGINE LATHE TENDER requested with RN/Pt/OT to f/u with pt and his ex about future planning.
[2021-08-25 12:02] VITALS: BP 132/58
--- NOTE | 2021-08-25 14:09 | NUR ---
ASSESSMENT CHARTED. PT ALERT AND ORIENTED. VSS. DENIED HAVING PAIN OR DISCOMFORT. SEEN BY DR. GILMORE. ORDERS GIVEN TO DISCHARGE PT TO HOME WITH HOME HEALTH. DISCHARGE INSTRUCTIONS GIVEN TO PT. PT VERBERLISED UNDERSTANDING.
[2021-08-28 21:05] LABS: SYPHILIS AB Non Reactive (Non Reactive)
== END 2021-08-25 14:52 | disposition home health service (06) | DRG 78 ==
LOC: ER 01:32 → 2N 03:41 → EROBS 03:41 → 2N 20:24
PROVIDERS: Emergency Medicine; Nurse Practitioner Family; Psychiatry & Neurology Neuromuscular Medicine; ADMIT Hospitalist; ATTEND Hospitalist
DX: I67.4 Hypertensive encephalopathy (principal); R47.01 Aphasia; D68.69 Other thrombophilia; I10 Essential (primary) hypertension; I25.10 Atherosclerotic heart disease of native coronary artery without angina pectoris; E78.5 Hyperlipidemia, unspecified; K21.9 Gastro-esophageal reflux disease without esophagitis; R26.89 Other abnormalities of gait and mobility; Z20.822 Contact with and (suspected) exposure to COVID-19; G89.29 Other chronic pain; M54.9 Dorsalgia, unspecified; Z87.891 Personal history of nicotine dependence; Z86.73 Personal history of transient ischemic attack (TIA), and cerebral infarction without residual deficits; Z79.899 Other long term (current) drug therapy; I25.2 Old myocardial infarction; Z95.5 Presence of coronary angioplasty implant and graft
CPT/HCPCS: 10081

== ENCOUNTER 2021-09-03 17:43 | Inpatient (IN) | payer OTHER ==
[~2021-09-03] VITALS: Ht 177.8 cm; Wt 77.7 kg
--- NOTE | ~2021-09-03 | HC ---
[facility] [place] [address] CONSULTATION Name: ZOILA BLAIR III Room #: 360- ADM IN M.R.#: [id number] Admission: 09/03/21 Attend Phys: Elizabeth Vallejo MD Discharge: Date of : 48 Report #: [id number] THIS REPORT FOR: cc: Amada Walsh MD, C. Douglas MD Khosla,Vic Patel MD ~ DATE OF SERVICE: 09/04/2021 HISTORY OF PRESENT ILLNESS: This is a 71-year-old male patient who was evaluated by me for altered mental status. I have seen this patient last time, we worked him up, history is not very clear. It looks like he had some speech difficulty. There is some history that he takes too much hydrocodone. Rest of the H and P was seen and this has been the case the last time also. REVIEW OF SYSTEMS: He has been intermittently restless and then become better. There is a question of substance abuses. He had a history of a TIA, GI bleeds, anxiety, depression, hypertension, hyperlipidemia, GERD, pericarditis and coronary artery disease. There is some history of back pain, stent placement. That was his relevant 14-point review of systems. PAST MEDICAL HISTORY: Positive for some stroke-like symptoms for which he was admitted and the workup was negative. FAMILY HISTORY: Unremarkable. SOCIAL HISTORY: He says he does not drink any alcohol. PHYSICAL EXAMINATION: Indicates he was sleepy. He woke up, but refused to cooperate for the examination. He has some speech, but he cannot tell me what month it is, and speech most of the time is incomprehensible. Cranial nerve examination and neuromuscular examination was attempted. He did not cooperate with either one of them. VITAL SIGNS: His blood pressure is 143/70, respirations 16, pulse is 64, temperature is 98.5. LABORATORY DATA: White count is normal. GFR is normal. ASSESSMENT AND PLAN: He does not appear to have any marked edema. Pulses are difficult to palpate. Cardiac and respiratory examinations appear unremarkable. His vision and hearing looks adequate. There is no meningeal sign. There is no thyroid mass. I do not hear any carotid bruit. His last imaging study was reviewed and that demonstrated what looks like a pretty prominent chronic disease. has requested the placement and that is being worked up in this patient. I will repeat the MRI in this patient because [address] [address] CONSULTATION Name: ZOILA BLAIR [facility] Room #: 360-P [facility] IN .R.#: [id number] Admission: 09/03/21 Attend Phys: Elizabeth Vallejo MD Discharge: Date of : 48 Report #: [id number] of history of aphasia and we will see what it shows and we will follow up this patient with you. Thank you very much for this referral. By: [id number] Vic Owusu MD /nt
--- NOTE | ~2021-09-03 | HC ---
[facility] [place] [address] CONSULTATION Name: ZOILA BLAIR III Room #: 360-[facility] IN M.R.#: [id number] Admission: 09/03/21 Attend Phys: Elizabeth Vallejo MD Discharge: Date of : 48 Report #: [id number] THIS REPORT FOR: cc: Amada Walsh MD, C. Douglas MD Smithson, David G. MD ~ DATE OF SERVICE: 09/06/2021 HISTORY OF PRESENT ILLNESS: The patient is a 71-year-old -[place] male admitted with mental status changes, agitation, confusion the last couple of months. He has had behavioral outbursts and his is unable to manage him anymore at home. He was seen by Neurology and diagnosed with an underlying dementia and Neurology recommendation was that he needs placement so someone can monitor his medications. PAST MEDICAL HISTORY: Includes TIA in 2011, coronary artery disease, hypertension, pericarditis, cardiac stents. HABITS: He is a former smoker. FAMILY HISTORY: Positive for dementia. MEDICATIONS: Please see the full medication listing. ALLERGIES: No known drug allergies. SOCIAL HISTORY: He has been living with his ex- in a multilevel home with stairs, occasional cane usage. REVIEW OF SYSTEMS: No specific complaints of chest pain, shortness of breath or abdominal discomfort. PHYSICAL EXAMINATION: GENERAL: A 71-year-old -[place]ian male, in no obvious distress. VITAL SIGNS: Last recorded temperature 36.4, pulse 56, respirations 16, blood pressure 169/83. The patient is alert. HEENT: Appeared to be benign. NEUROLOGIC: Cranial nerves are grossly intact. He will follow basic 1-step commands. He is of rather slender build. Functional range of motion of both upper and lower extremities, no obvious focal weakness. DTRs are trace to 1. He has been min assist sit to stand, gait 125 feet min assist without assistive device. ASSESSMENT: A 71-year-old -[place]ian male with the following problem list: 1. Underlying dementia as per Neurology. [address] [address] CONSULTATION Name: BLAIRZOLIA GONGORASOHA [facility] Room #: [address] [place] [address] IN M.R.#: [id number] Admission: 09/03/21 Attend Phys: Elizabeth Vallejo MD Discharge: Date of : 48 Report #: [id number] 2. Encephalopathy with psychiatry involved. 3. Acute renal insufficiency. 4. Hypertension. 5. History of coronary artery disease. PLAN: Agree with Neurology recommendations that with his underlying dementia, it would be best for him to be in a situation where he can be cared for and have someone else monitor his medications. Neurology has recommended placement where this can be undertaken. I do not see that he would meet criteria for an acute inpatient rehabilitation stay. Thank you for asking us to assist in this patient's care. By: [id number] [id number] Sid Lowery MD /nt
--- NOTE | ~2021-09-03 | EMS ---
[address] [address] EMS Patient Care Report Name: ZOILA BLAIR III Room #: 360-P ADM IN M.R.#: [id number] Admission: 09/03/21 Attend Phys: Elizabeth Vallejo MD Discharge: Date of : 48 Report #: [id number] THIS REPORT FOR: //name// Report Transmitted: 09/06/2021 10:21 EMS Care Summary [place], [place]/[facility] Incident [id number] @ 09/03/2021 16:53 Incident Location [address] [place] [address] Patient ZOILA BLAIR, III Male, 71 Years 1950 Patient Address [address] [place] [address] Patient History Hypertension (HTN),Stroke/CVA,Hyperlipidemia,Cardiac - Stent, Patient Allergies No known allergies, Patient Medications Hydrochlorothiazide (Hctz), Hydrocodone, Gabapentin, Metoprolol, Atorvastatin, Duloxetine, Meloxicam, Chief Complaint will not reply Disposition Transported No Lights/[place] Dispatch Reason Sick Person Transported To [facility] Narrative patient is found sitting in a chair at the scene. family states that for about a month the patient behavior has become disoriented and confused. patient over the last few days, according to family, has gotten worse. family says that the [address] [address] EMS Patient Care Report Name: ZOILA BLAIR III Room #: 360-P [facility] IN ..#: [id number] Admission: 09/03/21 Attend Phys: Elizabeth Vallejo MD Discharge: Date of : 48 Report #: [id number] patient is not responding coherently and is not speaking properly. patient is awake and looking around. patient does appear confused. patient will respond to his name with yes. patient also responds to some questions with yes. patient is not able to give any info about himself or his current condition. patient does follow command. patient has no obvious signs of stroke. patient has no obvious injuries that can be seen. patient remains in his current condition during transport. Initial Vitals @17:18P: 67,BP: 215/99, @17:13P: 64,R: 20,BP: 222/80,Pain: 0/10,GCS: 13,Glucose: 114,Revised Trauma: 12,AR Suspected: false Assessments @17:05MENTAL:Confused,SKIN:No Abnormalities,HEENT:Head/Face: No Abnormalities,Eyes: No Abnormalities,Neck/Airway: No Abnormalities,LUNG SOUNDS:General: No Abnormalities,Left Upper: No Abnormalities,Right Upper: No Abnormalities,Left Lower: No Abnormalities,Right Lower: No Abnormalities,ABDOMEN:General: No Abnormalities,Left Upper: No Abnormalities,Right Upper: No Abnormalities,Left Lower: No Abnormalities,Right Lower: No Abnormalities,PELVIS//GI:No Abnormalities,EXTREMITIES:Left Arm: No Abnormalities,Right Arm: No Abnormalities,Left Leg: No Abnormalities,Right Leg: No Abnormalities,PULSE:NEURO:No Abnormalities, Impression Altered Mental Status Procedures @17:14General CommentsResponse: Unchanged@17:22Saline Lock 0cc (20 ga) Site: Antecubital-LeftResponse: UnchangedFailed@17:233-Lead ECGResponse: UnchangedSucceeded@17:05ALS AssessmentResponse: UnchangedSucceeded@17:09StretcherResponse: Unchanged Timeline 16:52,Call Received 16:52,Dispatch Notified 16:53,Dispatched 16:57,En Route 17:02,On Scene 17:05,At Patient 17:05,ALS Assessment,Response: UnchangedSucceeded, 17:09,Stretcher,Response: Unchanged 17:13,BP: 222/80 M,PULSE: 64,RR: 20 R,SPO2: Ox,ETCO2: ,B,PAIN: 0,GCS: 13, 17:14,General Comments,Response: Unchanged 17:18,BP: 215/99 M,PULSE: 67,RR: R,SPO2: Ox,ETCO2: ,BG: ,PAIN: ,GCS: , [facility] [address] [place] [address] EMS Patient Care Report Name: ZOILA BLAIR [facility] Room #: 360-P ADM IN M.R.#: [id number] Admission: 09/03/21 Attend Phys: Elizabteh Vallejo MD Discharge: Date of : 48 Report #: [id number] 17:22,Saline Lock 0cc 20 ga Site: Antecubital-Left,Response: UnchangedFailed, 17:23,3-Lead ECG,Response: UnchangedSucceeded, 17:24,Depart Scene 17:38,At Destination 17:51,Call Closed Disclaimer v1.1 Copyright 2020 [employer] This EMS Care Summary contains data elements from the applicable legal record (which may be displayed differently). It is designed to provide pertinent information for the following purposes: continuity of care, clinical quality, and state data reporting. The complete legal record is available to ED staff and administrators of the receiving hospital in [employer]'s Patient Tracker. All data is provided "as is."
[~2021-09-03 17:43] MED LIST changes: +DULOXETINE HCL60 MG PO; +FLONASE 0.05%50 MCG NASAL; +HYDROCHLOROTHIA25 M1 PO; +MELOXICAM15 MG PO; +METOPROLOL TART25 MG PO; +ZINC50 M1 PO
[2021-09-03 17:44] VITALS: BP 162/99
[2021-09-03 19:23] LABS: URINE BILIRUBIN NEGATIVE (Negative); URINE BLOOD NEGATIVE (Negative); URINE CLARITY CLEAR; URINE COLOR YELLOW; URINE GLUCOSE-RANDOM* NEGATIVE (Negative); URINE KETONES NEGATIVE (Negative); URINE LEUKOCYTES-REFLEX NEGATIVE (Negative); URINE NITRITE-REFLEX NEGATIVE (Negative); URINE PROTEIN (DIPSTICK) NEGATIVE (Negative); URINE UROBILINOGEN 0.2 E.U./dl (0.2-1.0)
[2021-09-03 19:32] LABS: AMP/METHAMP Negative (Negative); BARBITURATES Negative (Negative); BENZODIAZEPINES Negative (Negative); COCAINE Negative (Negative); METHADONE Negative (Negative); OPIATES Negative (Negative); PCP Negative (Negative)
[2021-09-03 19:48] LABS: ABSOLUTE NEUTROPHILS 6.6 thou/uL (1.4-8.2); BASOPHILS 0.5 % (0.0-2.0); EOSINOPHILS 1.3 % (0.0-3.0); HEMATOCRIT 41.5 % (42.0-52.0); HEMOGLOBIN 13.7 gm/dL (14.0-18.0); LYMPHOCYTES 22.8 % (24.0-44.0); MCH 30.2 pg (26.0-34.0); MCHC 33.1 g/dL (28.0-37.0); MCV 91.1 fL (80.0-100.0); MONOCYTES 6.2 % (1.0-8.0); PLATELET COUNT 224 thou/uL (150-400); POLYS 69.2 % (36.0-66.0); RBC 4.55 mil/uL (4.50-6.00); RDW 13.9 % (10.5-14.5); WBC 9.5 thou/uL (4.0-11.0)
[2021-09-03 20:00] LABS: CALCIUM 9.7 mg/dL (8.5-10.1); CREATININE 1.4 mg/dL (0.7-1.3); POTASSIUM 3.6 mmol/L (3.5-5.1)
[2021-09-03 20:10] LABS: TOTAL BILIRUBIN 0.5 mg/dL (0.2-1.0); TOTAL PROTEIN 7.7 g/dL (6.4-8.2)
[2021-09-03 22:53] VITALS: BP 165/83
[2021-09-03 23:08] VITALS: BP 165/83
[2021-09-03 23:45] VITALS: BP 184/94
[2021-09-04 03:55] VITALS: BP 183/66
--- NOTE | 2021-09-04 06:40 | NUR ---
Arrived from ER around 2345. Unable to answer orientation questions and unable to follow commands.He slept intermittently. Following some commands this am and took his pills. Tolerating room air well , with no respiratory distress. Incontinent of bladder several times then able to void per urinal when offered x1. Low mg level has been replaced. Hydralazine given for high BP. Bed alarm on , pt. is impulsive. Dr. Owusu and Dr. Pearson consult will be called by US.
[2021-09-04 07:49] VITALS: BP 147/64
[2021-09-04 11:23] VITALS: BP 143/70
--- NOTE | 2021-09-04 15:01 | NUR ---
PT WAS ABLE TO TELL ME HIS NAME THIS AFTERNOON AND INTERMITTENTLY HAS PERIOD OF ANSWERING APPROPRIATELY. PT DOES SAY YES, NO, AND OK MULTIPLE TIMES. SPOKE TO NEERU AND SHE STATED THAT PT THE "JUST DOES THIS AND HE KNOWS WHAT HE IS DOING." ALSO STATED THAT EH HAS HAD "LEGAL" RECREATIONAL DRUG USE IN THE PAST AND HE HAS CHANGED ONE DRUG FOR ANOTHER SO SHE DOES NOT KNOW WHAT IS GOING ON WITH HIM. WHEN GIVING PT HIS 1400 DOSE OF GABAPENTIN, PT STATED THAT HE DOESN'T TAKE GABAPENTIN ANYMORE, THEN KEPT REPEATING "I DO NOT TAKE THAT ANYMORE." EVEN WHEN ASKING PT ANOTHER QUESTIONS, HE WOULD SAY "I DO NOT TAKE THAT ANYMORE." PT REFUSED MEDICATION AT THAT TIME. PT DID ATTEMPT TO GET OUT OF BED UNASSISTED AND BED ALARM ALARMED STAFF. PT WAS REDIRECTED TO STAY IN BED AND CALL STAFF. BED ALARM RESET. WILL CONTINUE TO MONITOR.
--- NOTE | 2021-09-04 16:30 | NUR ---
INITIAL ASSESSMENT: Received consult. AZAM reviewed chart and spoke with nursing and attending physician. Pt was admitted from home due to AMS. Pt was recently discharged from [facility] on 08/25 with Jessica ROY. Pt is currently on service with HH. PT/OT/ST ordered to evaluate pt. Psych and neuro consulted. MRI ordered for today. AZAM met with pt at bedside. Pt very lethargic and did not wake up to SW's voice. AZAM spoke with pt's ex-, Elda, via phone. Introduced role of SW. Pt and Elda live at home together. Pt has a son, who is not involved in his care. Pt's states that pt has a long hx of drug use. Pt goes to [facility] for neurology follow up. Pt with family hx of Alzheimer's. Pt's states that pt's mother and sister had Alzheimer's and started showing signs around pt's age. Pt's states pt has been confused and forgetful lately. Pt has not shown up to several doctors appointments. Pt used to drive himself to appts and has since had his keys taken away. Pt is indpendent with ambulation. Pt's states that her children are not involved in pt's care. Pt's reports she is needing to scheduled her knee surgeries that she has been delaying due to pt needing care. AZAM explained that therapy evals have been ordered and discussed possible post-acute placement upon discharge. Pt's agreeable with plan of care. AZAM updated attending physician. AZAM is following to assist as needed with discharge planning.
[2021-09-04 16:45] VITALS: BP 142/69
[2021-09-04 20:36] VITALS: BP 152/74
[2021-09-05 03:02] VITALS: BP 140/76
--- NOTE | 2021-09-05 04:57 | NUR ---
Pt. has been more alert and awake. At beginning of shift , able to state his name and bday. Repeat words at times and has some expressive aphasia. This am he was able to tell me his name , bday though not the year and he is at the hospital.Frequent reorientation given to pt. He is more cooperative and less impulsive. Bed alarm on for safety. SCD's in place. Tolerating room air well. Denies being in pain. Incontinent of bladder. Offered to use urinal and he did use it with assist. Making some progress towards care plan goals.
[2021-09-05 07:29] VITALS: BP 183/82
[2021-09-05 11:18] VITALS: BP 136/64
[2021-09-05 16:03] VITALS: BP 177/71
--- NOTE | 2021-09-05 19:11 | NUR ---
ASSUMED CARE OF PT AT 0700. PT PLEASANTLY CONFUSED AND ORIENTED TO SELF AND PLACE. COVID NOW DONE WITH NEGATIVE RESULTS. WAS UPDATED ON PT STATUS TWICE THROUGHOUT THE SHIFT. DR TARANGO CALLED THIS AFTERNOON AND ASKED TO CALL PT'S .
[2021-09-05 19:39] VITALS: BP 153/75
[2021-09-06] VITALS (7 sets, daily range): BP systolic 153–177; BP diastolic 70–86
--- NOTE | 2021-09-06 02:37 | NUR ---
Slept well during the night.Able to state name,bday and he's at the hospital. Forgetful and pleasantly confused with expressive aphasia. Tolerating room air well. Denies being in pain. He has been using the urinal with less episode of incontinence. Bed alarm on for safety. Making some progress towards care plan goals.
--- NOTE | 2021-09-06 11:08 | NUR ---
OT ATTEMPTED SESSION FOR 2ND TIME TODAY AT 0938, PT. FINSIHED EATING AND SPEAKING ON PHONE. PT. HANDS PHONE TO OT UPON OT ARRIVAL. OT INTRODUCES SELF, PT. (NEERU) ON PHONE. EXPRESSES EXTREME FRUSTRATION WITH CARES AND LACK OF COMMUNICATION FROM STAFF TO . REPORTS A FAMILY MEMBER IS A PSYCHIATRY INSTRUCTOR USING A THREATENING TONE. OT REASSURES THAT SHE WILL OBTAIN INFORMATION ABOUT A PT. ADVOCATE FOR AND WILL BE CONTACTED THIS MORNING. OT ALSO PROVIDES THERAPEUTIC LISTENING. APPEARS REASSURED. OT THEN LEAVES ROOM AND CONTACTS NURSE SHEETMETAL WORKER, LOVE, TO INFORM. LOVE REPORTS SHE WILL CONTACT NOW. OT RE-ENTERS ROOM FOR SESSION AT 0950. PT. HAS ANOTHER FAMILY MEMBER ON PHONE AND DECLINES THERAPY DUE TO WANTING TO TALK WITH FAMILY MEMBER.
--- NOTE | 2021-09-06 14:53 | NUR ---
SW reviewed chart and spoke with nursing and attending physician. Pt is progressing towards goals for discharge. SW spoke with pt's via phone to discuss discharge plan. Pt's states that she has spoken with pt and he is agreeable with post-acute placement. SW reviewed in-network faciities and discussed referral process and need for insurance authorization. Pt's verbalized understanding and requests referral to be sent to [facility]. Pt's states that her niece was at [facility] in the past and she was pleased with the care. SW faxed referral to [facility] and notified Michael in admissions of new referral. SW is following to assist as needed with discharge planning.
--- NOTE | 2021-09-06 18:07 | NUR ---
RN ASSUMED PT'S CARE AT 0700AM, PT IS A&OX2 ( PERSON AND PLACE), PT IS CONFUSED AT TIME, PT IS ON ROOM AIR, PT HAS PT/OT TO WORK WITH HIM, PT GETS UP TO BSC WITH ASSIST, PT EATS WELL , RN HAS UPDATED PT'S IMFORMATION TO PT'S .
[2021-09-06 19:27] LABS: HEMATOCRIT 42.1 % (42.0-52.0); HEMOGLOBIN 14.3 gm/dL (14.0-18.0); MCHC 33.9 g/dL (28.0-37.0); MCV 91.5 fL (80.0-100.0); RBC 4.6 mil/uL (4.50-6.00); RDW 14.1 % (10.5-14.5); WBC 9.8 thou/uL (4.0-11.0)
[2021-09-06 19:33] LABS: CALCIUM 9.1 mg/dL (8.5-10.1); CREATININE 1.2 mg/dL (0.7-1.3)
[2021-09-06 19:37] LABS: POTASSIUM 4.4 mmol/L (3.5-5.1)
[2021-09-07 04:12] VITALS: BP 160/89
--- NOTE | 2021-09-07 04:59 | NUR ---
PROGRESS PT ALERT TO PERSON AND PLACE, ON ROOM AIR. PLEASANT AND COOPERATIVE. NOT GETTING OOB UNASSISTED. WAS INCONTINENT X 2 BUT USED URINAL FOR MOST OF THE SHIFT, I THINK HE MAY JUST SPILL IT ON HIMSELF. PT USED CALL LIGHT APPROPRIATELY THIS SHIFT. UP WITH 1 GB AND SBA. ON ROOM AIR DENIES PAIN. PLAN IS TO DC TO SNF WHEN ACCEPTED AND INSURANCE APPROVAL. VSS, CONTINUE POC.
[2021-09-07 07:18] VITALS: BP 188/74
[2021-09-07 09:41] VITALS: BP 160/85
--- NOTE | 2021-09-07 11:13 | NUR ---
SW reviewed chart and spoke with nursing and attending physician. Pt is progressing towards goals for discharge. Discharge to SNF is anticipated in 1-2 days. [facility] SNF liaison will do onsite eval this morning. [facility] to submit for insurance authorization if they are able to accept. Awaiting input from the facility at this time. AZAM is following to assist as needed with discharge planning.
[2021-09-07 15:24] VITALS: BP 145/75
--- NOTE | 2021-09-07 19:13 | NUR ---
RN ASSUMED PT'S CARE AT 0700-1900PM, PT IS A&OX2 ( PERSON AND PLACE), PT IS CONFUSED AT TIME, PT'S VS ARE STABLE , PT 'S WAEKNESS HAS IMPROVED, PT IS WALKING IN HALLWAY WITH PT, PT WILL DC TO SNF SOON.
[2021-09-07 19:32] VITALS: BP 160/84
[2021-09-07 23:44] VITALS: BP 1138/65; BP 138/65
[2021-09-08 03:30] VITALS: BP 142/64
[2021-09-08 03:46] VITALS: BP 142/62
--- NOTE | 2021-09-08 04:16 | NUR ---
Patient alert to person and place but not situation, high fall risks, fall precautions in place. Calls out appropriately for needs. IVfluids infusing, uses urinal to void without difficulty. Temp 99 orally. Fair oral intake. Slept well.
[2021-09-08 06:41] LABS: ABSOLUTE NEUTROPHILS 5.4 thou/uL (1.4-8.2); BASOPHILS 0.4 % (0.0-2.0); EOSINOPHILS 1.8 % (0.0-3.0); HEMATOCRIT 40.3 % (42.0-52.0); HEMOGLOBIN 13.5 gm/dL (14.0-18.0); LYMPHOCYTES 24.6 % (24.0-44.0); MCH 30.8 pg (26.0-34.0); MCHC 33.4 g/dL (28.0-37.0); MCV 92.2 fL (80.0-100.0); MONOCYTES 6.6 % (1.0-8.0); PLATELET COUNT 196 thou/uL (150-400); POLYS 66.6 % (36.0-66.0); RBC 4.37 mil/uL (4.50-6.00); WBC 8.1 thou/uL (4.0-11.0)
[2021-09-08 07:06] LABS: ALBUMIN 3.3 g/dL (3.4-5.0); CALCIUM 9.2 mg/dL (8.5-10.1); CREATININE 1.5 mg/dL (0.7-1.3); MAGNESIUM 1.5 mg/dL (1.8-2.4); PHOSPHORUS 3.5 mg/dL (2.5-4.9); POTASSIUM 3.9 mmol/L (3.5-5.1); TOTAL BILIRUBIN 0.6 mg/dL (0.2-1.0); TOTAL PROTEIN 6.8 g/dL (6.4-8.2)
[2021-09-08 07:12] VITALS: BP 129/80
--- NOTE | 2021-09-08 09:37 | 2DMMODE ---
[facility] [place] [address] 2 D/M-MODE ECHOCARDIOGRAM Name: [facility] Room #: 360-P ADM IN M.R.#: [id number] Admission: 09/03/21 Attend Phys: Elizabeth Vallejo MD Discharge: Date of : 48 Report #: [id number] THIS REPORT FOR: cc: Amada Walsh MD, C. Douglas MD Santiago, Patrick MD [facility] ~ APPROVED REPORT Study performed: 09/08/2021 08:51:48 EXAM: Comprehensive 2D, Doppler, and color-flow Echocardiogram Patient Location: Bedside Room #: 360 Status: routine BSA: 1.95 HR: 61 bpm BP: 129/80 mmHg Rhythm: NSR Other Information Study Quality: Good Indications Encephalopathy of unknow etiology. Unable to perform Bubble Study due to infiltrated IV. (Hx: CAD, PCI, TIA, HTN, HLP). 2D Dimensions RVDd: 35.87 mm IVSd: 11.55 (7-11mm) LVOT Diam: 22.01 (18-24mm) LVDd: 42.53 mm PWd: 11.68 (7-11mm) LVDs: 31.89 (25-40mm) Left Atrium: 31.54 (27-40mm) Aortic Root: 33.72 mm Volumes Left Atrial Volume (Systole) Single Plane 4CH: 21.15 mL Single Plane 2CH: 28.81 mL LA ESV Index: 14.00 mL/m2 Aortic Valve AoV Peak Max.: 1.11 m/s AO Peak Gr.: 4.94 mmHg LVOT Max P.45 mmHg [facility] [address] [place] [address] 2 D/M-MODE ECHOCARDIOGRAM Name: ZOILA BLA[facility] III Room #: 360-P [facility] IN ..#: [id number] Admission: 09/03/21 Attend Phys: Elizabeth Vallejo MD Discharge: Date of : 48 Report #: [id number] LVOT Max V: 0.78 m/s PEDRITO Vmax: 2.68 cm2 Mitral Valve E/A Ratio: 0.6 MV Decel. Time: 309.54 ms MV E Max Max.: 0.54 m/s MV A Max.: 0.98 m/s MV PHT: 89.77 ms IVRT: 152.25 ms Pulmonary Valve PV Peak Max.: 0.80 m/s PV Peak Gr.: 2.56 mmHg Tricuspid Valve TR Peak Max.: 2.01 m/s RAP Estimate: 5.00 mmHg TR Peak Gr.: 16.14 mmHg PA Pressure: 21.00 mmHg Left Ventricle The left ventricle is normal size. Regional wall motion abnormalities are noted. Mild concentric left ventricular hypertrophy. Left ventricular systolic function is normal. LVEF is 55%. Mild diastolic dysfunction is present (impaired relaxation pattern). Right Ventricle The right ventricle is normal size. The right ventricular systolic function is normal. Atria The left atrium size is normal. The right atrium size is normal. Aortic Valve The aortic valve is normal in structure. Trace aortic regurgitation. There is no aortic valvular stenosis. Mitral Valve The mitral valve is normal in structure. Trace mitral regurgitation. No evidence of mitral valve stenosis. Tricuspid Valve The tricuspid valve is normal in structure. Trace tricuspid regurgitation. Estimated PAP is 21mmHg. Pulmonic Valve [facility] [place] [address] [place] [address] 2 D/M-MODE ECHOCARDIOGRAM Name: [facility] Room #: 360-[facility] IN M.R.#: [id number] Admission: 09/03/21 Attend Phys: Elizabeth Vallejo MD Discharge: Date of : 48 Report #: [id number] The pulmonary valve is normal in structure. There is no pulmonic valvular regurgitation. Great Vessels The aortic root is normal in size. Ascending aorta is not well visualized. IVC is normal in size and collapses >50% with inspiration. Pericardium There is no pericardial effusion. <Conclusion> Normal left ventricular size with mild concentric hypertrophy Ejection fraction 55% Normal right ventricular size/function Normal atrial size Normal aortic/mitral valve structure and function Trace tricuspid valve insufficiency Pulmonary systolic pressure estimated 21 mmHg No pericardial effusion Normal aortic root size. <ELECTRONICALLY SIGNED> By: Cyril Pardo MD, [facility] 10/07/22 [phone] Cyril Pardo MD, FAC /INF
--- NOTE | 2021-09-08 11:24 | NUR ---
AZAM reviewed chart and spoke with nursing and attending physician. Pt is medically stable for discharge to post-acute care today. AZAM contacted Gloria in admissions at [facility]. Awaiting insurance authorization at this time. Chart copy requested. AZAM is following to assist as needed with discharge planning.
[2021-09-08] MEDS ORDERED: VITAMIN B-1100 M2 PO (14:18)
[2021-09-08] MEDS ORDERED: PROTONIX 20 MG20 M1 PO (14:18)
[2021-09-08] MEDS ORDERED: ASA81BEC PO (14:20)
[2021-09-08] MEDS ORDERED: FLOMAX0.4 MG PO (14:21)
[2021-09-08] MEDS ORDERED: B COMPLEX1 EACH PO (14:21)
[2021-09-08 15:19] VITALS: BP 127/66
--- NOTE | 2021-09-08 15:56 | NUR ---
RN ASSUMED PT'S CARE AT 0700AM, PT IS A&OX2 ( PERSON AND PLACE ), PT CAN FOLLOW COMMANDS, PT IS CONFUSED AT TIME,PT'S VS ARE STABLE, PT DNIES PAIN AND SOB,PT'S WEAKNESS HAS IMPROVED, RN RECEIVED ORDER TO DC PT TO SNF [facility], THE TRANSPORTATION WILL PICK PT ABOUT 1630PM.
--- NOTE | 2021-09-08 16:44 | NUR ---
RN HAS GIVING SNF REPORT, TRANSPORTATION PERSON PICK PT TO SNF ( [facility]) BY W/C AT 1630PM.
== END 2021-09-08 16:40 | DRG 682 ==
LOC: ER 17:43 → EROBS 21:33 → 3W 21:33
PROVIDERS: Emergency Medicine; Internal Medicine; ADMIT Internal Medicine; ATTEND Internal Medicine
DX: N17.9 Acute kidney failure, unspecified (principal); G93.41 Metabolic encephalopathy; E46 Unspecified protein-calorie malnutrition; F41.9 Anxiety disorder, unspecified; F32.9 Major depressive disorder, single episode, unspecified; Z66 Do not resuscitate; R53.81 Other malaise; E78.5 Hyperlipidemia, unspecified; N40.0 Benign prostatic hyperplasia without lower urinary tract symptoms; Z20.822 Contact with and (suspected) exposure to COVID-19; I10 Essential (primary) hypertension; K21.9 Gastro-esophageal reflux disease without esophagitis; E83.42 Hypomagnesemia; I25.10 Atherosclerotic heart disease of native coronary artery without angina pectoris; M10.9 Gout, unspecified; Z86.73 Personal history of transient ischemic attack (TIA), and cerebral infarction without residual deficits; Z68.24 Body mass index [BMI] 24.0-24.9, adult; I25.2 Old myocardial infarction; Z81.8 Family history of other mental and behavioral disorders; Z95.5 Presence of coronary angioplasty implant and graft; Z87.891 Personal history of nicotine dependence; Z87.828 Personal history of other (healed) physical injury and trauma; Z28.21 Immunization not carried out because of patient refusal; Z79.82 Long term (current) use of aspirin; M79.89 Other specified soft tissue disorders; F03.90 Unspecified dementia, unspecified severity, without behavioral disturbance, psychotic disturbance, mood disturbance, and anxiety
CPT/HCPCS: 10879